=== PATIENT | female | born 1990 | race Caucasian/White ===

== ENCOUNTER 2018-07-17 17:46 | Emergency (ER) | payer OTHER ==
[~2018-07-17] VITALS: Ht 160 cm; Wt 90.7 kg
[~2018-07-17 17:46] MED LIST: AMOX500 PO; Amoxicillin500 MG PO; Augmentin 875-1 EACH PO; CEPH500 PO; CYCL10 PO; IBUP600 PO; LIDO5TP TOP; MECL12.5 PO; MULVITMINA PO; NAPR550 PO; PENVK500 PO; PHENA200 PO; SULTRIDS PO; Sudogest60 MG PO; Zofran Odt4 MG SL
[2018-07-17] MEDS ORDERED: PSEU120ER PO (19:17)
== END 2018-07-17 19:26 | disposition home or self-care (01) ==
LOC: ER 17:46
DX: H65.93 Unspecified nonsuppurative otitis media, bilateral (principal); J32.9 Chronic sinusitis, unspecified; R03.0 Elevated blood-pressure reading, without diagnosis of hypertension
CPT/HCPCS: 99282

== ENCOUNTER 2020-08-06 23:46 | Emergency (ER) | payer OTHER ==
[~2020-08-06] VITALS: Ht 160 cm; Wt 90.7 kg
[~2020-08-06 23:46] MED LIST changes: +PSEU120ER PO
== END 2020-08-07 00:32 | disposition home or self-care (01) ==
LOC: ER 23:46
DX: U07.1 COVID-19 (principal)
CPT/HCPCS: 99283